=== PATIENT | female | born 1960 | race African-American/Black ===

== ENCOUNTER 2019-03-12 16:54 | Emergency (ER) | payer MEDICARE ==
[~2019-03-12] VITALS: Ht 170.2 cm; Wt 68.0 kg
[2019-03-12 17:06] VITALS: BP 121/76
== END 2019-03-12 18:07 | disposition home or self-care (01) ==
LOC: ER 16:58
DX: I10 Essential (primary) hypertension (principal); Z76.0 Encounter for issue of repeat prescription; Z98.890 Other specified postprocedural states; Z88.6 Allergy status to analgesic agent

== ENCOUNTER 2024-01-04 22:57 | Emergency (ER) | payer MEDICARE ==
[~2024-01-04] VITALS: Ht 175.3 cm; Wt 72.6 kg
[2024-01-04] MEDS ORDERED: BENA10TA74 PO (23:43)
[2024-01-04] MEDS ORDERED: HYDR-4279 PO (23:43)
[2024-01-04] MEDS ORDERED: oxyCODONE/APAP (5/325 MG) 1 UDTAB TABLET ONE (23:46)
[2024-01-04] MEDS ORDERED: BENAZEPRIL HCL 10 MG TABLET ONE (23:46)
[2024-01-04] MEDS: oxyCODONE/APAP (5/325 MG) 1 UDTAB TABLET PO ONE (23:50)
[2024-01-04] MEDS: BENAZEPRIL HCL 10 MG TABLET PO ONE (23:50)
[2024-01-05] MEDS ORDERED: CARI350T PO (00:49)
[2024-01-05] MEDS ORDERED: BENA10TA74 PO (00:49)
[2024-01-05] MEDS ORDERED: HYDR-3980 PO (00:49)
[2024-01-05 01:26] LABS: ABG BASE EXCESS 0.5 mmol/L; ABG OXYGEN SATURATION 95.2 % (92.0-98.5); ABG PCO2 40.9 mmHg (35.0-45.0); ABG PH 7.408 (7.350-7.450); ABG PO2 75.2 mmHg (75.0-100.0); ABG TOTAL HEMOGLOBIN 12.8 G/dL (12.0-16.0); MetHb 0.2 % (0.0-1.5); SITE, ABG Right Radial; VENT MODE, BG Room Air
[2024-01-05 01:33] VITALS: BP 142/81; TEMP 98.8; O2SAT 99
== END 2024-01-05 01:33 | disposition home or self-care (01) ==
LOC: ER 23:01
DX: R51.9 Headache, unspecified (principal); I10 Essential (primary) hypertension; R10.13 Epigastric pain; M41.80 Other forms of scoliosis, site unspecified; Z86.73 Personal history of transient ischemic attack (TIA), and cerebral infarction without residual deficits; Z88.6 Allergy status to analgesic agent; Z76.0 Encounter for issue of repeat prescription
CPT/HCPCS: 36600; 76770-TC; 82803-TC

== ENCOUNTER 2024-03-14 19:09 | Emergency (ER) | payer MEDICARE ==
[~2024-03-14] VITALS: Ht 175.3 cm; Wt 68.0 kg
[~2024-03-14 19:09] MED LIST: BENA10TA74 PO; CARI350T PO; HYDR-3980 PO; HYDR-4279 PO
[2024-03-14] MEDS ORDERED: BENA10TA74 PO (19:46)
[2024-03-14] MEDS ORDERED: HYDR-3980 PO (19:46)
[2024-03-14] MEDS ORDERED: HYDROCODONE/APAP 5/325MG TABLET ONE (19:47)
[2024-03-14] MEDS: HYDROCODONE/APAP 5/325MG TABLET PO ONE (19:50)
[2024-03-14 19:53] VITALS: BP 136/74; TEMP 97.7; O2SAT 98
== END 2024-03-14 19:53 | disposition home or self-care (01) ==
LOC: ER 19:11
DX: I10 Essential (primary) hypertension (principal); G89.29 Other chronic pain; M54.50 Low back pain, unspecified; Z86.73 Personal history of transient ischemic attack (TIA), and cerebral infarction without residual deficits; Z88.6 Allergy status to analgesic agent; Z88.8 Allergy status to other drugs, medicaments and biological substances; Z76.0 Encounter for issue of repeat prescription